=== PATIENT | male | born 1995 | race Two or more races ===

== ENCOUNTER 2021-11-29 09:35 | Emergency (ER) | payer OTHER ==
[~2021-11-29] VITALS: Ht 170.2 cm; Wt 74.8 kg
[2021-11-29 10:43] VITALS: BP 155/87
[2021-11-29] MEDS ORDERED: TETRACAINE HCL 0.5% OPTH(EYE) SOLN 4ML EACHEYE ONE (11:00)
[2021-11-29] MEDS ORDERED: FLUORESCEIN SOD OPTH TEST STRIP EACHEYE ONE (11:00)
[2021-11-29] MEDS ORDERED: POLYSOL15 OP (12:18)
== END 2021-11-29 12:23 | disposition home or self-care (01) ==
LOC: ER 09:35
DX: T15.92XA Foreign body on external eye, part unspecified, left eye, initial encounter (principal); Z79.899 Other long term (current) drug therapy; X58.XXXA Exposure to other specified factors, initial encounter; Y93.89 Activity, other specified; Y92.89 Other specified places as the place of occurrence of the external cause; Y99.8 Other external cause status